=== PATIENT | female | born 1990 | race Caucasian/White ===

== ENCOUNTER 2020-05-06 19:00 | Emergency (ER) | payer OTHER ==
[~2020-05-06] VITALS: Ht 157.5 cm; Wt 53.0 kg
[2020-05-06 20:13] LABS: HEMATOCRIT 42.8 % (37.0-47.0); HEMOGLOBIN 13.9 g/dl (12.0-16.0); IMMATURE GRANULOCYTES 0.2 % (0.0-5.0); MEAN CELL VOLUME 87.3 fL CALC (80.0-100.0); MEAN CORPUSCULAR HGB 28.4 pG CALC (26.0-32.0); MEAN CORPUSCULAR HGB CONC 32.5 g/dL CAL (32.0-36.0); NEUT# 5.66 thou/uL (2.00-7.15); RED BLOOD COUNT 4.9 mill/uL (4.20-5.60); RED CELL DISTRI WIDTH 12.6 % (11.5-15.5)
[2020-05-06 20:15] LABS: URINE BILIRUBIN - DIPSTICK NEGATIVE (NEGATIVE); URINE BLOOD DIPSTICK TRACE-INTACT (NEGATIVE); URINE COLOR YELLOW; URINE GLUCOSE - DIPSTICK NEGATIVE (NEGATIVE); URINE KETONE NEGATIVE (NEGATIVE); URINE LEUK ESTERASE NEGATIVE (NEGATIVE); URINE NITRITE - DIPSTICK NEGATIVE (Negative); URINE PH 5.5 (4.5-8.0); URINE PROTEIN - DIPSTICK NEGATIVE (NEG-TRACE); URINE SPECIFIC GRAVITY 1.025; URINE UROBILINOGEN - DIPSTICK 0.2 E.U./dL (0.2)
[2020-05-06 20:27] LABS: ALBUMIN 4.6 g/dL (3.2-5.0); ALKALINE PHOSPHATASE 45 u/l (38-126); AMYLASE 69 u/l (30-110); ANION GAP 14 (6-22 (CALC)); BILIRUBIN, TOTAL 0.5 mg/dL (0.0-1.4); BUN 12 mg/dL (7-17); BUN/CREATININE RATIO 17 (12-20 (CALC)); CARBON DIOXIDE 24 mmol/l (22-30); CHLORIDE 101 mmol/l (95-108); CREATININE 0.7 mg/dL (0.5-1.0); GFR > 60 ML/MIN (>=60 (CALC)); GFR FOR AFR.AMER. > 60 ML/MIN (>=60 (CALC)); LIPASE 112 u/l (23-300); POTASSIUM 3.8 mmol/l (3.5-5.1); SGOT/AST 20 u/l (14-36); SODIUM 135 mmol/l (137-146); TOTAL PROTEIN 7.4 g/dL (6.3-8.2)
[2020-05-06 21:19] VITALS: BP 103/73
[2020-05-06] MEDS ORDERED: ONDANSETRON4 MG PO (22:09)
[2020-05-06] MEDS ORDERED: LOMOTIL2.5 MG PO (22:09)
== END 2020-05-06 22:35 | disposition home or self-care (01) ==
LOC: ED 19:00
PROVIDERS: Emergency Medicine
DX: B34.9 Viral infection, unspecified (principal); F41.9 Anxiety disorder, unspecified; Z20.822 Contact with and (suspected) exposure to COVID-19
CPT/HCPCS: Q9967